=== PATIENT | male | born 1965 | race Caucasian/White ===

== ENCOUNTER 2019-09-02 07:53 | Outpatient (CLI) | payer OTHER ==
[2019-09-02] MEDS ORDERED: OMEG1CAP6 PO (08:28)
[2019-09-02] MEDS ORDERED: LAMO150T2 PO (08:28)
[2019-09-02] MEDS ORDERED: PROP60TA PO (08:28)
[2019-09-02] MEDS ORDERED: CHOL500050 PO (08:28)
[2019-09-02 09:02] LABS: INTERNATIONAL NORMALIZED RATIO 0.94 (0.93-1.1); PROTHROMBIN TIME 9.9 Seconds (9.6-11.5)
[2019-09-02 09:06] LABS: ANION GAP 4 mmol/L (5-15); CALCIUM 8.9 mg/dL (8.5-10.1); CHLORIDE 110 mmol/L (98-107); CREATININE 1.05 mg/dL (0.7-1.3)
== END 2019-09-02 23:59 | disposition home or self-care (01) ==
LOC: STAR 07:53
PROVIDERS: ATTEND Orthopaedic Surgery
DX: Z01.818 Encounter for other preprocedural examination (principal); M17.11 Unilateral primary osteoarthritis, right knee
CPT/HCPCS: 36415; 80048; 85610; 85730; 87081; 93005